=== PATIENT | female | born 1990 | race American Indian/Alaskan Native ===

== ENCOUNTER 2017-07-27 08:30 | Emergency (ER) | payer BC ==
[2017-07-27] MEDS ORDERED: PEPCID IV ONE (08:39)
[2017-07-27] MEDS ORDERED: DECADRON IV ONE (08:39)
[2017-07-27] MEDS ORDERED: BENADRYL IV ONE (08:39)
--- NOTE | 2017-07-27 08:46 | Emergency Department Report ---
ED Allergic Reaction HPI - General Stated complaint: ALLERGIC REACTION Time Seen by Provider: 07/27/17 08:39 Source: patient - History of Present Illness Initial Comments: 26-year-old female presents in the department with complaint of allergic reaction. Patient started itching all over in office earlier today and then felt her throat itching. She feels worsening of the symptoms at this point. Denies any fevers chills nausea vomiting. No difficulty breathing at this time. She did not have any known exposures. She does have a known shellfish allergy. MD Complaint: allergic reaction, hives -: Sudden Exposure: unknown Symptoms: rash, itching, facial swelling, difficulty swallowing Severity: moderate Treatment Prior to Arrival: none - Related Data Previous Rx's Medication Instructions Recorded Last Taken Type Famotidine [Pepcid] 20 mg PO BID #10 tablet 07/27/17 Unknown Rx diphenhydrAMINE [Benadryl CAP] 25 mg PO Q6HR PRN #30 capsule 07/27/17 Unknown Rx predniSONE [Deltasone] 40 mg PO QDAY #8 tablet 07/27/17 Unknown Rx Allergies Allergy/AdvReac Type Severity Reaction Status Date / Time Iodine and Iodide Containing Allergy Angioedema Verified 07/27/17 09:44 Produc shellfish derived Allergy Angioedema Verified 07/27/17 09:44 ED Review of Systems ROS: Stated complaint: ALLERGIC REACTION Other details as noted in HPI Comment: All other systems reviewed and negative Constitutional: denies: chills, fever ENT: throat pain. denies: ear pain Respiratory: denies: cough, shortness of breath, wheezing Cardiovascular: denies: chest pain, palpitations Endocrine: no symptoms reported Gastrointestinal: denies: abdominal pain, nausea, diarrhea Genitourinary: denies: urgency, dysuria, discharge Musculoskeletal: denies: back pain, joint swelling, arthralgia Skin: rash. denies: lesions Neurological: denies: headache, weakness, paresthesias Psychiatric: denies: anxiety, depression Hematological/Lymphatic: denies: easy bleeding, easy bruising ED Past Medical Hx - Past Medical History Previous Medical History?: Yes Additional medical history: Allergic reaction - Medications Home Medications: Home Medications Medication Instructions Recorded Confirmed Last Taken Type Famotidine [Pepcid] 20 mg PO BID #10 tablet 07/27/17 Unknown Rx diphenhydrAMINE [Benadryl CAP] 25 mg PO Q6HR PRN #30 capsule 07/27/17 Unknown Rx predniSONE [Deltasone] 40 mg PO QDAY #8 tablet 07/27/17 Unknown Rx ED Physical Exam - General General appearance: alert, in no apparent distress - Head Head exam: Present: atraumatic, normocephalic - Eye Eye exam: Present: normal appearance. Absent: scleral icterus, conjunctival injection - ENT ENT exam: Present: mucous membranes moist, other (no evidence of oral swelling) - Neck Neck exam: Present: normal inspection - Respiratory Respiratory exam: Present: normal lung sounds bilaterally. Absent: respiratory distress, wheezes - Cardiovascular Cardiovascular Exam: Present: regular rate, normal rhythm, normal heart sounds. Absent: systolic murmur, diastolic murmur, rubs, gallop - GI/Abdominal GI/Abdominal exam: Present: soft, normal bowel sounds - Extremities Exam Extremities exam: Present: normal inspection - Back Exam Back exam: Present: normal inspection - Neurological Exam Neurological exam: Present: alert, oriented X3 - Psychiatric Psychiatric exam: Present: normal affect, normal mood - Skin Skin exam: Present: warm, dry, intact, normal color, urticaria ED Course Vital Signs 07/27/17 07/27/17 08:35 09:45 Temperature 98.2 F Pulse Rate 80 Respiratory 16 Rate Blood Pressure 134/79 Blood Pressure 134/79 [Right] O2 Sat by Pulse 91 97 Oximetry ED Medical Decision Making - Medical Decision Making 26-year-old female here with allergic reaction. Patient has urticaria all over her body. She has no evidence of oral or pharyngeal swelling at this time. She does continue to clear her throat and the ring. Plan to treat with Benadryl Pepcid and steroids and will reassess. Plan observed for several hours. Patient with improvement in symptoms. Plan to discharge home. Portions of this chart were dictated with dictation software. There may be dictation errors contained within this note. Critical care attestation.: If time is entered above; I have spent that time in minutes in the direct care of this critically ill patient, excluding procedure time. ED Disposition Clinical Impression: Allergic reaction Disposition: DC-01 TO HOME OR SELFCARE Is pt being admited?: No Condition: Stable Instructions: Urticaria (ED) Prescriptions: diphenhydrAMINE [Benadryl CAP] 25 mg PO Q6HR PRN #30 capsule PRN Reason: Allergic Reaction Famotidine [Pepcid] 20 mg PO BID #10 tablet predniSONE [Deltasone] 40 mg PO QDAY #8 tablet
[2017-07-27 11:57] VITALS: BP 127/62
== END 2017-07-27 11:58 | disposition home or self-care (01) ==
LOC: ED 08:30
DX: T78.40XA Allergy, unspecified, initial encounter (principal); R21 Rash and other nonspecific skin eruption; Z91.013 Allergy to seafood; Z88.8 Allergy status to other drugs, medicaments and biological substances
CPT/HCPCS: 96374; 96375; 99282; J1100; J1200